=== PATIENT | female | born 1960 | race Caucasian/White ===

== ENCOUNTER → 2017-07-28 | Outpatient (CLI) | payer BC, OTHER | LOC: HYPER 07-27 10:03 | DX: S90.511A Abrasion, right ankle, initial encounter (principal); E78.2 Mixed hyperlipidemia; K21.9 Gastro-esophageal reflux disease without esophagitis; G25.81 Restless legs syndrome; E03.9 Hypothyroidism, unspecified; F41.9 Anxiety disorder, unspecified; E78.00 Pure hypercholesterolemia, unspecified; Z87.891 Personal history of nicotine dependence; Z72.89 Other problems related to lifestyle; X58.XXXA Exposure to other specified factors, initial encounter; Y93.89 Activity, other specified; Y92.89 Other specified places as the place of occurrence of the external cause; Y99.8 Other external cause status ==